=== PATIENT | male | born 1955 | race Caucasian/White ===

== ENCOUNTER 2024-09-25 19:34 | Emergency (ER) | payer MEDICARE, BC, SELFPAY ==
[2024-09-25 19:36] VITALS: BP 124/66
[2024-09-25 20:08] VITALS: BP 134/71
--- NOTE | 2024-09-25 20:26 | ED.GENMED ---
History of Present Illness
<Jack Mayo MD, Resident - Last Filed: 09/25/24 22:22>
General
Chief Complaint: Fever
Source: patient
Time Seen by Provider: 09/25/24 20:07
Nursing documentation reviewed up to this point in time: agreed with
History of Present Illness
History of Present Illness:
69-year-old male with past medical history bladder cancer and stage IV prostate cancer comes to the ED with recent history of cough and fever and fatigue. He said that the symptoms started earlier this morning and there is dry cough and fatigue came
with a fever of around 101F. He took Tylenol this morning and Advil few hours ago. He does not have any dysuria however he does have some increased frequency of urination which he attributes to his medications (Flomax). He has not had any
headaches, nausea, abdominal pain, or vomiting or any chest pain or shortness of breath. Patient has a recent history of travel, he flew in from [place] this past Friday. He states that he finished his 40 treatments of chemo around 2 weeks ago in
[place]. He says that since chemo was started, he has been feeling fatigue that has been a normal baseline for him. However today the fatigue was more than usual.
<Jared Neil, DO - Last Filed: 09/25/24 21:49>
General
Exam Limitations: none
Past History
<Jack Mayo MD, Resident - Last Filed: 09/25/24 22:22>
Past History
ED Past Medical History: GERD and Other (Stage IV prostate cancer, bladder cancer)
Review of Systems
<Jack Mayo MD, Resident - Last Filed: 09/25/24 22:22>
Review of Systems
Allergies reviewed?: Yes
All Other Systems: ROS reviewed and negative except as documented in HPI and ROS
Phy Exam
<Jack Mayo MD, Resident - Last Filed: 09/25/24 22:22>
General Physical Exam
General Presentation: mild distress
General age: appears stated age
General Skin: warm and dry
General Habitus: normal
General Mental: alert
General Hydration: appears well hydrated
Cardiovascular Exam
Cardiovascular Exam: regular rate/rhythm, no edema and no murmur
Pulmonary Exam
Pulmonary Exam: lungs clear, no respiratory distress, no rales, no crackles and no rhonchi
Skin Exam
Skin Exam: normal color and warm/dry
Scores
<Jack Mayo MD, Resident - Last Filed: 09/25/24 22:22>
PE Wells Score
Symptoms of DVT: No
No alternative diagnosis better explains the illness: No
Tachycardia with pulse > 100: No
Immobilization (>=3 days) or surgery within previous 4 weeks: No
Prior history of DVT or pulmonary embolism: No
Presence of hemoptysis: No
Presence of malignancy: Yes
Pulmonary Embolism Risk Score: 1
Probability of PE: Pt is low risk
<Jared Neil, DO - Last Filed: 09/25/24 21:49>
PE Wells Score
Pulmonary Embolism Risk Score: 1
Probability of PE: Pt is low risk
Course
<Jack Mayo MD, Resident - Last Filed: 09/25/24 22:22>
Orders/Labs/Results
Orders:
Orders
09/25/24 20:27
0.9% Sodium Chloride 500 ml [Nss] 500 ml IV BOLUS
CR Chest - 2 Views Urgent
Comment:
Reason For Exam: Dry Cough
09/25/24 20:38
COVID-19 Antigen Urgent
Source: Nasal Swab
Complete Blood Count/With Diff Urgent
Comprehensive Metabolic Panel Urgent
Influenza A+B Rapid Molecular Urgent
VISHNU Source: Nasal Swab
Specimen Description:
09/25/24 21:26
Urinalysis Reflex To Culture Urgent
Date Specimen was Collected: 09/25/24
Time Specimen was Collected: 21:22
Abnormal Lab Results
09/25/24
20:38
RBC 3.36 L 10^6/uL
(4.70-6.10)
Hgb 10.8 L g/dL
(13.0-18.0)
Hct 31.0 L %
(39.0-52.0)
MCH 32.1 H pg
(27.0-31.0)
Abs Immat Gran (auto) 0.1 H 10^3/uL
(0-0.05)
Absolute Lymphs (auto) 0.1 L 10^3/uL
(1.2-3.4)
Absolute Monos (auto) 0.8 H 10^3/uL
(0.1-0.6)
Immature Gran % 1.3 H %
(0-0.5)
Neutrophils % 85.0 H %
(42.2-75.2)
Lymphocytes % 1.9 L %
(20.5-51.1)
Monocytes % 10.9 H %
(1.7-9.3)
Chloride 109 H mmol/L
(98-107)
BUN 25 H mg/dl
(9-20)
Glucose 114 H mg/dl
(70-99)
Total Protein 6.0 L g/dl
(6.3-8.2)
SARS-CoV-2 Antigen Positive A
(Negative)
09/25/24 20:38
09/25/24 20:38
Vital Signs
Initial and Last Documented VS:
Initial Vital Signs
Temp Pulse Resp BP Pulse Ox
98.2 F 92 20 124/66 93
09/25/24 19:36 09/25/24 19:36 09/25/24 19:36 09/25/24 19:36 09/25/24 19:36
Last Documented Vital Signs
Temp Pulse Resp BP Pulse Ox
98.2 F 65 22 143/83 96
09/25/24 19:36 09/25/24 21:49 09/25/24 21:49 09/25/24 22:05 09/25/24 22:06
<Jared Neil, DO - Last Filed: 09/25/24 21:49>
Orders/Labs/Results
Orders:
Orders
09/25/24 20:27
0.9% Sodium Chloride 500 ml [Nss] 500 ml IV BOLUS
CR Chest - 2 Views Urgent
Comment:
Reason For Exam: Dry Cough
09/25/24 20:38
COVID-19 Antigen Urgent
Source: Nasal Swab
Complete Blood Count/With Diff Urgent
Comprehensive Metabolic Panel Urgent
Influenza A+B Rapid Molecular Urgent
VISHNU Source: Nasal Swab
Specimen Description:
09/25/24 21:26
Urinalysis Reflex To Culture Urgent
Date Specimen was Collected: 09/25/24
Time Specimen was Collected: 21:22
Abnormal Lab Results
09/25/24
20:38
RBC 3.36 L 10^6/uL
(4.70-6.10)
Hgb 10.8 L g/dL
(13.0-18.0)
Hct 31.0 L %
(39.0-52.0)
MCH 32.1 H pg
(27.0-31.0)
Abs Immat Gran (auto) 0.1 H 10^3/uL
(0-0.05)
Absolute Lymphs (auto) 0.1 L 10^3/uL
(1.2-3.4)
Absolute Monos (auto) 0.8 H 10^3/uL
(0.1-0.6)
Immature Gran % 1.3 H %
(0-0.5)
Neutrophils % 85.0 H %
(42.2-75.2)
Lymphocytes % 1.9 L %
(20.5-51.1)
Monocytes % 10.9 H %
(1.7-9.3)
Chloride 109 H mmol/L
(98-107)
BUN 25 H mg/dl
(9-20)
Glucose 114 H mg/dl
(70-99)
Total Protein 6.0 L g/dl
(6.3-8.2)
SARS-CoV-2 Antigen Positive A
(Negative)
09/25/24 20:38
09/25/24 20:38
Vital Signs
Initial and Last Documented VS:
Initial Vital Signs
Temp Pulse Resp BP Pulse Ox
98.2 F 92 20 124/66 93
09/25/24 19:36 09/25/24 19:36 09/25/24 19:36 09/25/24 19:36 09/25/24 19:36
Last Documented Vital Signs
Temp Pulse Resp BP Pulse Ox
98.2 F 65 22 143/83 96
09/25/24 19:36 09/25/24 21:49 09/25/24 21:49 09/25/24 22:05 09/25/24 22:06
<Jack Mayo MD, Resident - Last Filed: 09/25/24 22:22>
MDM/Problems Addressed
Differential Diagnosis Includes:
URI, UTI, low suspicion of PE, dehydration
MDM/Problems Addressed:
69-year-old male with past medical history of stage IV prostate cancer, bladder cancer and GERD comes to the ED due to recent dry cough, fatigue and fever earlier this morning.
Will get basic lab work including CMP, CBC
Will give fluids as patient looks a bit dehydrated, and will get UA sample once patient is able to give urine.
Will get Chest X-Ray to check for any acute cardiopulmonary status. Especially due to cough. Will also get COVID and flu testing due to his recent travel history.
Patient tested positive for COVID. Symptomatic relief following IV fluid infusion. Was able to give UA and had much clearer urine than he had at home.
Paxlovid interactions checked, interacts with Atorvastatin, Flomax, and Alfuzosin. Will hold off on starting that and discussed with patient to continue supportive therapy once discharged
Once CXR and UA results are in, patient would be free to go home
UA and CXR un-remarkable, patient cleared to go home
Chronic conditions affecting care: Cancer (Stage IV Prostate Cancer s/p chemo treatment finished 2 weeks ago)
<Jack Mayo MD, Resident - Last Filed: 09/25/24 22:22>
*Pulse Oximetry
SaO2: 94
Oxygen Mode of Delivery: Room air
Patient hypoxic: no
*Critical Care Note
Total Time (30-74mins, 75-104mins- exclusive of procedures): Not Applicable
ED Attending Note
<Jack Mayo MD, Resident - Last Filed: 09/25/24 22:22>
-
Portions of this chart may have been created with voice recognition software.� Occasional wrong word or��sound alike� substitutions may have occurred due to the inherent limitations of voice recognition software.
<Jared Neil, DO - Last Filed: 09/25/24 21:49>
ED Attending Note
Patient seen and examined by attending physician: Yes
I performed a history and physical exam of patient and discussed management with resident, I reviewed resident's note and agree with documented findings and plan of care.: Yes
ED Attending Note:
I reviewed and agree with history and plan by Jack Mayo MD. My exam revealed
Physical Exam
General: no apparent distress, not acutely ill
Neck: supple. no meningeal signs. normal posterior pharynx
Heart: s1/s2 regular rate and rhythm, no murmur. equal radial
pulses.
HEENT: Pupils equal round reactive to light, EOMI
Lungs: no acute respiratory distress. clear bilaterally
Abdomen: normal bowel sounds. not tender. no CVAT
Neuro: alert and oriented. no focal neurological deficits cranial nerves II through XII intact
Skin: no rash
Psychiatric: well kept. interactive and cooperative
Extremities: no edema. no calf tenderness. negative homans. good distal pulses
69-year-old male with fevers cough, body aches due to COVID infection. Vital signs stable. Patient cannot take Paxlovid due to multiple medication interactions. He is recovering. Stable for discharge.
Discharge Plan
Departure
Patient Disposition: Home (Routine Discharge)
Date of Disposition: 09/25/24
Time of Disposition: 22:21
Patient with high blood pressure during this ER visit?: Yes
Condition: Fair
Covid-19: Confirmed COVID-19
Discharge Problem:
COVID-19
Instructions: Viral Syndrome (DC), BLOOD PRESSURE
Referrals:
UNKNOWN - PT DOES,NOT KNOW [Family Provider]
Activity Restrictions/Additional Instructions:
As discussed, you tested postiive for COVID-19, which was most likely the cause of your recent fatigue, fever, and cough.
Due to the many medications and recent chemotherapy, we will not be starting you on Paxlovid
Please continue proper hydration and continue to eat a regular diet as possible
If symptoms worsen and you develop worsening fevers that wont go away, please come back to the ED for further treatment.
Interventions
Interventions:
*Risk Screen - Suicide Last Done: 09/25/24 19:36
*General Assessment Last Done: 09/25/24 19:36
*Neglect/Abuse Screening Last Done: 09/25/24 19:36
*ED- Fall Risk Assessment Last Done: 09/25/24 20:34
*ED COVID-19 Vaccine History Last Done: 09/25/24 20:34
ED- Neurological Assessment Last Done: 09/25/24 20:34
ED-Skin Assessment Last Done: 09/25/24 20:34
Discharge Date and Time
Print Language: MALTESE
[2024-09-25 20:34] VITALS: BMI 26.9
[2024-09-25] MEDS: NSS 500 IV (20:43)
[2024-09-25 20:54] LABS: Hematocrit 31.0 % (39.0-52.0); Hemoglobin 10.8 g/dL (13.0-18.0); Mean Corp Hgb Conc. 34.8 g/dL (33.0-37.0); Mean Corpuscular Volume 92.3 fL (80.0-94.0); Nucleated Red Blood Cells % 0 % (-); Platelet Count 139 10^3/uL (130-400); Red Cell Dist. Width 13.9 % (11.5-14.5)
[2024-09-25 21:00] VITALS: BP 140/88
[2024-09-25 21:05] LABS: COVID-19 Antigen Positive (Negative)
[2024-09-25 21:11] LABS: ALT (SGPT) 25 U/L (0-50); AST (SGOT) 22 U/L (17-59); Albumin 3.7 g/dl (3.5-5.0); Alkaline Phosphatase 49 U/L (38-126); Blood Urea Nitrogen 25 mg/dl (9-20); Calcium 9.1 mg/dl (8.4-10.2); Carbon Dioxide 24 mmol/L (22-30); Chloride 109 mmol/L (98-107); Estimated Creatinine Clearance 65 ml/min; Glucose 114 mg/dl (70-99); Potassium 4.5 mmol/L (3.5-5.1); Sodium 135 mmol/L (135-145); Total Protein 6.0 g/dl (6.3-8.2); eGFR > 60.00
[2024-09-25 21:39] LABS: Urine Character Clear (Clear)
[2024-09-25 22:05] VITALS: BP 143/83
[2024-09-25 23:00] VITALS: BP 149/93
== END 2024-09-25 23:06 | disposition home or self-care (01) ==
LOC: EMR 19:34
PROVIDERS: EMERGENCY PHYSICIAN Emergency Medicine
DX: U07.1 COVID-19 (principal); E86.0 Dehydration; C61 Malignant neoplasm of prostate; Z85.51 Personal history of malignant neoplasm of bladder; Z92.21 Personal history of antineoplastic chemotherapy
CPT/HCPCS: 96360; 99284; 71046; 80053; 81003; 85025; 87502; 87811